=== PATIENT | female | born 1990 | race Caucasian/White ===

== ENCOUNTER 2016-06-11 18:35 | Emergency (ER) | payer MEDICAID ==
[2016-06-11] MEDS ORDERED: DIPHENHYDRAMINE 25 MG CAP ONE (19:16)
[2016-06-11] MEDS ORDERED: KCL CR 20 MEQ TAB PO ONE (21:40)
[2016-06-11] MEDS ORDERED: SODIUM CHLORIDE 0.9% 1,000 ML ONE (21:41)
[2016-06-11] MEDS ORDERED: POTASSIUM CHLOR 10MEQ -ED ONLY 100 ML IV ONE (21:41)
== END 2016-06-12 00:50 | disposition home or self-care (01) ==
LOC: ER 18:35
DX: O26.892 Other specified pregnancy related conditions, second trimester (principal); O99.332 Smoking (tobacco) complicating pregnancy, second trimester; R21 Rash and other nonspecific skin eruption; L01.00 Impetigo, unspecified; E87.6 Hypokalemia; F17.209 Nicotine dependence, unspecified, with unspecified nicotine-induced disorders; Z3A.24 24 weeks gestation of pregnancy
CPT/HCPCS: 36415; 80053; 81003; 85025; 85610; 85730; 93005; 96361; 96365; 96366